=== PATIENT | male | born 1950 | race Caucasian/White ===

== ENCOUNTER 2019-09-17 15:38 | Inpatient (IN) | payer MEDICARE, MEDICAID ==
[~2019-09-17] VITALS: Ht 175.3 cm; Wt 67.1 kg
--- NOTE | 2019-09-17 18:34 | NUR ---
AD OPERATIONS SPECIALISTSOCIAL MEDIA MARKETING SPECIALIST NOTES Received Patient via gurkobe. A/O x 4. VS stable with no acute distress. Breathing even and unlabored on room air with no respiratory distress. Denies pain. No signs and symptoms of pain. 20g PIV on right hand and 20g PIV on RFA clean, intact, patent and flushing well. Telemonitor in place and patent reading SR with PVC and HR-89. Safety precautions in place. Bed locked and set to lowest position with side rails x 2 up. All needs rendered at this time. Will continue to monitor.
[2019-09-17] MEDS ORDERED: ACETAMINOPHEN 325 MG TABLET PO PRN (19:00)
[2019-09-17] MEDS ORDERED: MAG HYDROX/AL HYDROX/SIMETH 30 ML UDC PO PRN (19:00)
[2019-09-17] MEDS ORDERED: hydrALAZINE HCL IV 20 MG VIAL IV PRN (19:00)
--- NOTE | 2019-09-17 19:00 | NUR ---
SLOT MACHINE KEY PERSON NOTES Obtained MRSA Nares specimen at this time. Patient in stable condition. Will continue to monitor.
--- NOTE | 2019-09-17 19:20 | NUR ---
PROVIDER NETWORK MANAGER CLOSING NOTES Patient awake and watching TV. A/O x 4. VS stable with no acute distress. Breathing even and unlabored on room air with no respiratory distress. Denies pain. No signs and symptoms of pain. 20g PIV on right hand and 20g PIV on RFA clean, intact, patent and flushing well. Telemonitor in place and patent reading SR with PVC and HR-90. Patient passed Swallow Eval. Noted right lower leg abrasion, right hip discoloration and sacral discoloration. Will endorse to oncoming shift to take skin assessment photos. Safety precautions in place. Bed locked and set to lowest position with side rails x 2 up. All needs rendered at this time. Will endorse to oncoming shift to complete admission.
[2019-09-17] MEDS ORDERED: LORAZEPAM INJ 2 MG/ML VIAL IV PRN (19:30)
[2019-09-17 20:28] VITALS: BP 117/79
[2019-09-17] MEDS: ENOXAPARIN SODIUM 40 MG/0.4 ML DISP.SYRIN SQ SCH (20:40)
[2019-09-17 21:35] LABS: CHOLESTEROL 133 mg/dL (<200); HDL CHOLESTEROL 62 mg/dL (40-60); LDL 64 mg/dL (0-99); TRIGLYCERIDES 56 mg/dL (30-150)
[2019-09-17] MEDS: SIMVASTATIN 20 MG TABLET PO SCH (22:03)
[2019-09-18] VITALS: BP 123/69
[2019-09-18 04:36] VITALS: BP 127/68
--- NOTE | 2019-09-18 05:58 | NUR ---
ENDING NOTED: WENT TO BED TO SLEEP 10PM PATIENT IS COOPERATIVE. BUT HE DID REFUSE TO HAVE HIS HEELS OF THE BED WITH A PILLOW D/T IT WAS UNCOMFORTABLE TO HIM. FEET WASH AND DRIED. DIRTY FEET ODOR REMAINS ON THE FEET. PHOTOS TAKEN D/T THE FEET HAVE LAYERS OF SKIN OFF AND SCABS, AND LING DIRTY TOE NAILS. NOTED NO PAIN IN THE FEET. HE STATES THE RIGHT SHOULDER IS PAIN WHEN HE MOVES IT D/T ROTATOR CUFF REAR. I WAS UNABLE TO DT A LEFT THE ARM TO TEST FOR DRIFTING HE STATED IT HURT TO MOVE. HIS AND CONTRACT DESIGNER SENAIT HANDS STRONG. NOTED HE HAS FEW TEETH IN HIS MOUTH, BUT ABLE TO EAT AND CHEW(GUN) HIS FOOD AND NO PROBLEMS SWALLOWING. HE LOVES TO EAT!! USES THE URINAL BUT DOES SPILL OUT D/T HIS NOT HOLDING IT PROPER. RIGHT LEG IS WEAK AND FALL TO THE BED WHEN TESTED FOR HOLDING. SCORED 2 ON THE NIHSS SCALE.
[2019-09-18 07:36] LABS: BASOPHILS % (AUTO) 0.6 % (0.0-2.0); EOSINOPHILS % (AUTO) 1.2 % (0.0-6.0); HEMATOCRIT 34 % (39-51); HEMOGLOBIN 10.9 g/dL (13.5-17.5); LYMPHOCYTES # (AUTO) 0.8 /CMM (0.8-4.8); LYMPHOCYTES % (AUTO) 10.1 % (20.0-44.0); MEAN CORPUSCULAR HGB CONC 32 g/dl (31.0-36.0); MEAN CORPUSCULAR VOLUME 93 fL (80-96); MONOCYTES # (AUTO) 0.8 /CMM (0.1-1.30); MONOCYTES % (AUTO) 9.9 % (2.0-12.0); NEUTROPHILS # (AUTO) 6.2 /CMM (1.8-8.9); NEUTROPHILS % (AUTO) 78.2 % (43.0-81.0); PLATELET COUNT (AUTO) 198 /CMM (150-450); WHITE BLOOD COUNT (AUTO) 7.9 K/uL (4.3-11.0)
[2019-09-18] MEDS ORDERED: UNK BP MEDICATION (07:42)
[2019-09-18] MEDS ORDERED: NITR0.4T48 SL (07:42)
[2019-09-18] MEDS ORDERED: ACET-868 PO (07:42)
[2019-09-18 07:45] LABS: CALCIUM, SERUM 8.2 mg/dL (8.5-10.1); CREATININE 0.7 mg/dL (0.6-1.3); POTASSIUM 3.1 mmol/L (3.5-5.1)
[2019-09-18 08:38] VITALS: BP 128/78
[2019-09-18] MEDS: DOCUSATE SODIUM 100 MG CAPSULE PO SCH (08:44)
[2019-09-18] MEDS: FOLIC ACID 1 MG TABLET PO SCH (08:44)
[2019-09-18] MEDS: THIAMINE HCL 100 MG TABLET PO SCH (08:44)
[2019-09-18] MEDS: ASPIRIN EC 325 MG TABLET.DR PO SCH (08:44)
[2019-09-18] MEDS: PANTOPRAZOLE 40 MG TABLET.DR PO SCH (08:44)
[2019-09-18] MEDS: MULTIVITAMINS,THERAGRAN 1 UDTAB TABLET PO SCH (08:44)
--- NOTE | 2019-09-18 09:39 | NUR ---
WOUND CARE CONSULT: PT PRESENTS WITH CALLUSED FEET AND LONG TOENAILS, PRESENT ON ADMISSION. DR LEON NOTIFIED OF DPM CONSULT REQUEST. PT IS INDEPENDENT WITH BED MOBILITY AND IS CONTINENT MOSTLY. WILL SEE PRN. IN AGREEMENT WITH PLAN OF CARE. CURRENT PAWAN SCORE IS 17.
[2019-09-18] MEDS: IV NS 0.9% 1,000 ML IV PRN (10:55)
[2019-09-18] MEDS: POTASSIUM CHLORIDE 20 MEQ TAB.PRT.SR PO SCH ×2 (10:55→13:33)
--- NOTE | 2019-09-18 14:31 | NUR ---
Social Service consult by Dr. Way for stroke. Per MD notes, Pt is a 68-year-old homeless male with past medical history of essential hypertension, EtOH abuse, admitted to medical floor from [facility] for evaluation of right-sided body weakness x3 days. Patient states he woke up 3 days ago with right-sided weakness. Patient also reports some pain in his right shoulder and right hip, however denies any recent falls or injuries. Patient denies fever, chills, dizziness, headache, nausea, vomiting, diarrhea, shortness of breath, cough, congestion, chest pain, abdominal pain, bowel and/or bladder incontinence, night sweats, weight loss. SENIOR ENGINEER met with the pt bedside. Pt. is alert and oriented x 4. Pt. appears disheveled, unkempt and has a foul odor. Pt. is homeless and has been for the past 4 years. Prior to being homeless, pt. was residing in [facility]. Pt. has no emergency contact. This is pt's first encounter for stroke. Pt. says he is a very active person and being in bed and not being able to walk around is causing him some sadness. Pt. denies suicidal ideations. Pt. is an alcohol and drinks as much vodka as he can afford on a daily basis. Last drink was today in am. Pt. recently completed the alcohol treatment program at [facility]. Pt. has been sober for 8 years in the past. Pt. receives SSI $695 per month. Pt.was independent with ADL's/IADL's prior to this hospitalization. Pt is willing to go to a SNF if deemed appropriate. Pt. does not have an Advance Directive and is not interested in one at this time. Pt has no surrogate decision maker. SENIOR ENGINEER provided pt. with active listening, emotional support and supportive counseling. SENIOR ENGINEER completed post-stroke depression screening/ M-PHQ9 and updated Med Surg CRN Veronica. No other social service needs are requested at this time.
[2019-09-18 16:29] VITALS: BP 130/74
[2019-09-18] MEDS ORDERED: CT SWABBABLE VALVE TRANS SET 1 EA INFUS.SET MC ONE (19:28)
[2019-09-18] MEDS ORDERED: IOHEXOL-350 100 ML VIAL IV ONE (19:28)
[2019-09-18] MEDS ORDERED: IV NS 0.9% 250 ML IV ONE (19:28)
[2019-09-18 20:00] VITALS: BP 133/74
[2019-09-18] MEDS: ENOXAPARIN SODIUM 40 MG/0.4 ML DISP.SYRIN SQ SCH (20:18)
[2019-09-18 20:22] VITALS: BP 133/79
--- NOTE | 2019-09-18 20:59 | NUR ---
Receiving Notes: alert and orientated X4 smiling denies pain. sent to CT as ordered. call light explained to the patient. Bed alarm on
[2019-09-18] MEDS: SIMVASTATIN 20 MG TABLET PO SCH (21:51)
--- NOTE | 2019-09-19 05:19 | NUR ---
ENDING NOTES: slept thru the night. Patient is cooperative and pleasent. He is continent but holds the urinal wrong and most of the UA spills out on to the bed. Urine and body odor foul smelling. Good appetite. need to be reposition d/t he won't turn himself
[2019-09-19 06:53] LABS: BASOPHILS % (AUTO) 0.6 % (0.0-2.0); EOSINOPHILS % (AUTO) 0.7 % (0.0-6.0); HEMATOCRIT 36 % (39-51); LYMPHOCYTES # (AUTO) 0.5 /CMM (0.8-4.8); LYMPHOCYTES % (AUTO) 7.5 % (20.0-44.0); MEAN CORPUSCULAR HGB CONC 33 g/dl (31.0-36.0); MEAN CORPUSCULAR VOLUME 92 fL (80-96); MONOCYTES # (AUTO) 0.8 /CMM (0.1-1.30); MONOCYTES % (AUTO) 11.1 % (2.0-12.0); NEUTROPHILS # (AUTO) 5.7 /CMM (1.8-8.9); NEUTROPHILS % (AUTO) 80.1 % (43.0-81.0); PLATELET COUNT (AUTO) 227 /CMM (150-450); RED BLOOD CELL COUNT(AUTO) 3.95 MIL/uL (4.5-6.0); WHITE BLOOD COUNT (AUTO) 7.1 K/uL (4.3-11.0)
[2019-09-19 07:21] LABS: ALBUMIN 2.2 g/dL (3.4-5.0); BILIRUBIN,TOTAL 0.9 mg/dL (0.2-1.0); CALCIUM, SERUM 8.3 mg/dL (8.5-10.1); CREATININE 0.6 mg/dL (0.6-1.3); MAGNESIUM 1.5 mg/dL (1.8-2.4); POTASSIUM 3.1 mmol/L (3.5-5.1)
--- NOTE | 2019-09-19 07:51 | NUR ---
MS RN OPENING NOTES RECEIVED PATIENT ASLEEP, SLEEPING COMFORTABLY. PATIENT ON ROOM AIR BREATHING WITHOUT EFFORT. NO SIGNS OF DISTRESS OR SOB NOTED AT THIS TIME. NO SIGNS OF PAIN SUCH FACIAL GRIMACING OR GUARDING AT THIS MOMENT. R UPPER HAND SL # 18, R HAND # 20 AND RFA # 20 PRESENT, INTACT AND PATENT. NO SIGNS OF INFILTRATION AT THE SITES.PATIENT HAS O STRONG BODY ODOR. SAFETY PRECAUTIONS IN PLACE: BED IN LOW POSITION AND LOCKED, RAILS UP X 2, CALL LIGHT WITHIN REACH. WILL CONTINUE TO MONITOR PATIENT.
[2019-09-19 08:00] VITALS: BP 181/105
[2019-09-19] MEDS: PANTOPRAZOLE 40 MG TABLET.DR PO SCH (09:02)
[2019-09-19] MEDS: DOCUSATE SODIUM 100 MG CAPSULE PO SCH (09:03)
[2019-09-19] MEDS: THIAMINE HCL 100 MG TABLET PO SCH (09:03)
[2019-09-19] MEDS: ASPIRIN EC 325 MG TABLET.DR PO SCH (09:03)
[2019-09-19] MEDS: FOLIC ACID 1 MG TABLET PO SCH (09:03)
[2019-09-19] MEDS: MULTIVITAMINS,THERAGRAN 1 UDTAB TABLET PO SCH (09:03)
[2019-09-19] MEDS: AMMONIUM LACTATE 227 GM BOTTLE TP SCH (09:38)
[2019-09-19] MEDS: POTASSIUM CHLORIDE 20 MEQ TAB.PRT.SR PO SCH ×2 (10:33→11:34)
[2019-09-19] MEDS: Magnesium 1GM/D5W 100ML PREMIX 100 ML IV SCH ×2 (11:41→12:52)
[2019-09-19] MEDS ORDERED: K PHOS NEUTRAL 250 MG TABLET PO ONE (12:00)
[2019-09-19 13:16] VITALS: BP 131/75
[2019-09-19 16:00] VITALS: BP 155/81
[2019-09-19 17:58] VITALS: BP 151/83
--- NOTE | 2019-09-19 18:40 | NUR ---
MS RN CLOSING NOTES PATIENT IN BED, AWAKE, WATCHING TV. PATIENT IS A/O X 3/4, ON ROOM AIR BREATHING EVENLY AND WITH NO S/S OF DISTRESS OR SOB NOTED AT THIS TIME. PATIENT DENIES ANY PAIN AT THE MOMENT. R ARM GAUGE # 18, CLAUDIA NS GAUGE # 20 AND RFA GAUGE # 20 PRESENT AND INTACT. NO SIGNS OF INFILTRATION AT THE SITES. POTASSIUM, PHOSPHORUS AND MAGNESIUM REPLACED TODAY. ALL NEEDS WERE MET. SAFETY MEASURES IN PLACE: BED IN LOW POSITION AND LOCKED, RAILS UP X 2, CALL LIGHT WITHIN REACH. WILL ENDORSE TO LOCAL [place] TRUCK DRIVER NURSE.
--- NOTE | 2019-09-19 19:30 | NUR ---
MS RN NOTES RECEIVED LAYING COMFORTABLY ON BED,A/O X4,BREATHING REGULAR,NOT IN ANY FORM OF DISTRESS.IVF NS AT 75ML/HR RATE IN PROGRESS,INFUSING VIA IV PUMP ON RIGHT ARM,SITE PATENT.NOTED FOUL SMELL ON LOWER EXTREMITIES,NOTED SOME CALLUS ON BILATERAL FOOT.DENIES DISCOMFORTS AT THE MOMENT.CALL LIGHT IN REACH,NEEDS ANTICIPATED.
[2019-09-19 20:00] VITALS: BP 146/55
[2019-09-19] MEDS: ENOXAPARIN SODIUM 40 MG/0.4 ML DISP.SYRIN SQ SCH (20:18)
[2019-09-19] MEDS: SIMVASTATIN 20 MG TABLET PO SCH (22:08)
[2019-09-19] MEDS: IV NS 0.9% 1,000 ML IV PRN (22:09)
--- NOTE | 2019-09-20 06:41 | NUR ---
MS RN NOTES LAYING COMFORTABLY ON BED,A/O X4,NO COMPLAINTS OF PAIN,STILL WITH RIGHT SIDED WEAKNESS.MORNING CARE RENDERED BY LAZARUS BURGER,TOLERATED WELL.IVF IN PROGRESS ON RIGHT ARM.IN NO ACUTE DISTRESS.WILL ENDORSE TO DAY NURSE FOR NAIMA.
--- NOTE | 2019-09-20 07:30 | NUR ---
M/S RN NOTES PATIENT AWAKE IN BED, NO RESPIRATORY DISTRESS, NO C/O PAIN AT THIS TIME. SKIN WARM TO TOUCH. IV NS INFUSING AT 75ML/HR ON THE RAC, INTACT AND PATENT. PATIENT'S NEEDS ATTENDED, BED ON LOWEST LOCKED POSITION, CALL LIGHT WITHIN REACH. WILL CONTINUE TO MONITOR.
[2019-09-20 07:35] LABS: CALCIUM, SERUM 8.7 mg/dL (8.5-10.1); CREATININE 0.7 mg/dL (0.6-1.3); MAGNESIUM 1.8 mg/dL (1.8-2.4); PHOSPHORUS 3.2 mg/dL (2.5-4.9); POTASSIUM 3.5 mmol/L (3.5-5.1)
[2019-09-20 07:57] VITALS: BP 176/93
[2019-09-20] MEDS: PANTOPRAZOLE 40 MG TABLET.DR PO SCH (08:06)
[2019-09-20] MEDS: FOLIC ACID 1 MG TABLET PO SCH (08:25)
[2019-09-20] MEDS: DOCUSATE SODIUM 100 MG CAPSULE PO SCH (08:25)
[2019-09-20] MEDS: MULTIVITAMINS,THERAGRAN 1 UDTAB TABLET PO SCH (08:25)
[2019-09-20] MEDS: ASPIRIN EC 325 MG TABLET.DR PO SCH (08:25)
[2019-09-20] MEDS: THIAMINE HCL 100 MG TABLET PO SCH (08:25)
[2019-09-20] MEDS: AMMONIUM LACTATE 227 GM BOTTLE TP SCH (08:26)
[2019-09-20] MEDS: IV NS 0.9% 1,000 ML IV PRN (13:01)
[2019-09-20 16:00] VITALS: BP 167/97
[2019-09-20] MEDS ORDERED: SIMV-46 PO (17:45)
[2019-09-20] MEDS ORDERED: DOCU-270 PO (17:45)
[2019-09-20] MEDS ORDERED: Thiamine HCL PO (17:45)
[2019-09-20] MEDS ORDERED: MULT-24 PO (17:45)
[2019-09-20] MEDS ORDERED: HYDR12.5 PO (17:45)
[2019-09-20] MEDS ORDERED: Folic Acid PO (17:45)
[2019-09-20] MEDS ORDERED: ASPI-869 PO (17:45)
--- NOTE | 2019-09-20 20:10 | NUR ---
M/S RN NOTES PATIENT AWAKE IN BED, NO RESPIRATORY DISTRESS, PAIN ON THE RT SHOULDER TOLERABLE AT THIS TIME. PATIENT'S SKIN WARM TO TOUCH. PATIENT'S IV ACCESS SITE INTACT AND PATENT INFUSING NS AT 75ML/HR. SKIN PHOTOS TAKEN AND PUT IN CHART. PATIENT'S NEEDS ATTENDED. REPORT GIVEN TO JEFF FERRARA AT [facility], AWAITING [facility]. ENDORSE TO [facility] FOR DISCHARGE.
--- NOTE | 2019-09-20 20:25 | NUR ---
RN NOTES PAGED QING AVALOS REGARDING PATIENT BLOOD PRESSURE 167/103 WHO IS FOR DISCHARGE TO [facility]... QING ALTAMIRANO-PRACHI ORDERED HYDRALAZINE 10MG IV X1, ORDER NOTED AND CARRIED OUT
[2019-09-20] MEDS ORDERED: hydrALAZINE HCL IV 20 MG VIAL IV ONE (20:40)
[2019-09-20 20:42] VITALS: BP 167/103
[2019-09-20] MEDS: ENOXAPARIN SODIUM 40 MG/0.4 ML DISP.SYRIN SQ SCH (20:50)
--- NOTE | 2019-09-20 22:00 | NUR ---
RN NOTES BLOOD PRESSURE WENT DOWN TO 142/88, DENIES PAIN , NO SOB, PATIENT LEFT VIA AMBULANCE ON STABLE CONDITION
== END 2019-09-20 22:00 | DRG 554 ==
LOC: TELE 18:25 → MED 09-18 09:14
PROVIDERS: ADMIT Nurse Practitioner Acute Care; ATTEND Hospitalist
DX: M19.011 Primary osteoarthritis, right shoulder (principal); F10.29 Alcohol dependence with unspecified alcohol-induced disorder; E44.0 Moderate protein-calorie malnutrition; G81.91 Hemiplegia, unspecified affecting right dominant side; E51.9 Thiamine deficiency, unspecified; E87.6 Hypokalemia; I10 Essential (primary) hypertension; Z59.0 Homelessness; F10.20 Alcohol dependence, uncomplicated; Y90.9 Presence of alcohol in blood, level not specified; G62.1 Alcoholic polyneuropathy; E83.42 Hypomagnesemia; M16.11 Unilateral primary osteoarthritis, right hip; L85.3 Xerosis cutis; D64.9 Anemia, unspecified; B35.1 Tinea unguium; E83.39 Other disorders of phosphorus metabolism
CPT/HCPCS: 36415; 70496-TC; 70498-TC; 80048-TC; 80053-TC; 80061-TC; 83735-TC; 84100-TC; 85025-TC; 85652-TC; 85730-TC; 87081-TC; 92611-TC; 97110-TC; 97530-TC; A4216; G0378; J0360; J1650; J3475; J7030; J7050; Q9967

== ENCOUNTER 2022-09-23 09:03 | Outpatient (CLI) | payer MEDICARE, MEDICAID ==
[~2022-09-23 09:03] MED LIST: ACET-868 PO; ASPI-869 PO; DOCU-270 PO; Folic Acid PO; HYDR12.5 PO; MULT-24 PO; NITR0.4T48 SL; SIMV-46 PO; Thiamine HCL PO
[2022-09-23] MEDS ORDERED: BARIUM SULFATE SUSP 450 ML BOTTLE PO ONE (09:22)
== END 2022-09-23 23:59 | disposition home or self-care (01) ==
LOC: CT 09:03
PROVIDERS: ATTEND Internal Medicine
DX: K46.9 Unspecified abdominal hernia without obstruction or gangrene (principal); M62.08 Separation of muscle (nontraumatic), other site
CPT/HCPCS: 74150-TC